=== PATIENT | male | born 1970 | race Caucasian/White ===

== ENCOUNTER 2017-11-19 10:54 | Emergency (ER) | payer BC ==
[2017-11-19] MEDS ORDERED: Ketorolac 60 MG/2 ML SDV IM ONE (11:07)
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
== END 2017-11-19 12:34 | disposition home or self-care (01) ==
LOC: MW.ED 10:54
DX: S22.41XD Multiple fractures of ribs, right side, subsequent encounter for fracture with routine healing (principal); F17.210 Nicotine dependence, cigarettes, uncomplicated; Z79.899 Other long term (current) drug therapy; X58.XXXD Exposure to other specified factors, subsequent encounter
CPT/HCPCS: 71101; 96372; 99283; J1885